=== PATIENT | female | born 1965 | race Two or more races ===

== ENCOUNTER 2018-02-11 06:51 | Emergency (ER) | payer BC ==
[~2018-02-11] VITALS: Ht 167.6 cm; Wt 93.4 kg
[2018-02-11 06:57] VITALS: Ht 167.6 cm; Wt 93.4 kg
[2018-02-11 08:50] VITALS: BP 126/57
== END 2018-02-11 08:50 | disposition home or self-care (01) ==
LOC: ED 06:51
DX: S42.294A Other nondisplaced fracture of upper end of right humerus, initial encounter for closed fracture (principal); F41.9 Anxiety disorder, unspecified; W18.39XA Other fall on same level, initial encounter; Y93.89 Activity, other specified; Y92.89 Other specified places as the place of occurrence of the external cause; Y99.8 Other external cause status
CPT/HCPCS: J1885

== ENCOUNTER 2018-07-08 13:34 | Emergency (ER) | payer BC ==
[~2018-07-08] VITALS: Ht 167.6 cm; Wt 88.9 kg
[2018-07-08 13:38] VITALS: Ht 167.6 cm; Wt 88.9 kg
[2018-07-08 15:18] LABS: microscopic required? YES; urine erythrocyte NEGATIVE (NEGATIVE)
[2018-07-08 15:50] VITALS: BP 112/60
== END 2018-07-08 16:09 | disposition home or self-care (01) ==
LOC: ED 13:34
DX: R42 Dizziness and giddiness (principal); F41.9 Anxiety disorder, unspecified